=== PATIENT | male | born 1970 | race Caucasian/White ===

== ENCOUNTER 2020-10-13 09:35 | Inpatient (IN) | payer OTHER ==
[~2020-10-13] VITALS: Ht 165.1 cm; Wt 72.6 kg
[2020-10-13 09:39] VITALS: BP 107/63
[2020-10-13 11:40] LABS: HEMATOCRIT 45.7 % (42.0-52.0); HEMOGLOBIN 14.7 gm/dL (14.0-18.0); MCH 30.3 pg (26.0-34.0); MCHC 32.1 g/dL (28.0-37.0); MCV 94.4 fL (80.0-100.0); RBC 4.84 mil/uL (4.50-6.00); RDW 16.8 % (10.5-14.5)
[2020-10-13 11:51] LABS: CALCIUM 8.1 mg/dL (8.5-10.1); CREATININE 1.2 mg/dL (0.7-1.3); POTASSIUM 4.2 mmol/L (3.5-5.1)
[2020-10-13 11:56] LABS: ALBUMIN 3.6 g/dL (3.4-5.0); TOTAL BILIRUBIN 3.2 mg/dL (0.2-1.0); TOTAL PROTEIN 7.1 g/dL (6.4-8.2)
[2020-10-13 12:06] LABS: ABSOLUTE NEUTROPHILS 3.3 thou/uL (1.4-8.2); PLATELET COUNT 83 thou/uL (150-400); PLATELET ESTIMATE DECREASED
[2020-10-13 12:08] LABS: INR 1.5; PROTIME 15.1 Seconds (9.3-11.4)
--- NOTE | 2020-10-13 12:19 | EKG ---
[facility] [place] [address] ELECTROCARDIOGRAM REPORT Name: KITTYREX Room #: PRE M.R.#: [id number] Admission: Attend Phys: Discharge: Date of : 70 Report #: [id number] THIS REPORT FOR: cc: Arnaldo Lynch MD [facility] ~ THIS REPORT FOR: //name// 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[facility] [place] 1970 Requested By: Gerardo Kauffman Order Number: [id number] MD: Arnaldo Lynch Measurements Intervals [place] Rate: 113 P: ND: QRS: 33 QRSD: 108 T: 233 QT: 350 QTc: 480 Interpretive Statements Atrial fibrillation Ventricular premature complex LVH with secondary repolarization abnormality Borderline prolonged QT interval No previous ECG available for comparison Electronically Signed On 10-13-2020 12:19:12 INVESTIGATION OFFICER by Arnaldo Lynch [email or web address] <ELECTRONICALLY SIGNED> By: Arnaldo Lynch MD, FAC 10/13/20 1219 0948 0948 Arnaldo Lynch MD, FACC /EPI
--- NOTE | 2020-10-13 12:23 | NUR ---
RETURNED FROM CT SCAN
[2020-10-13] MEDS ORDERED: FUROSEMIDE 40 M40 MG PO (13:58)
[2020-10-13] MEDS ORDERED: SPIRONOLACTONE25 MG PO (13:58)
[2020-10-13] MEDS ORDERED: ZESTRIL2.5 MG PO (13:59)
[2020-10-13] MEDS ORDERED: TOPROL XL100 MG PO (14:00)
[2020-10-13] MEDS ORDERED: XARELTO20 MG PO (14:00)
[2020-10-13] MEDS ORDERED: LIPITOR10 MG PO (14:00)
[2020-10-13] MEDS ORDERED: MULTI VITAMIN1 EACH PO (14:01)
[2020-10-13 16:11] LABS: % SATURATION 8 % (20-39); IRON 34 ug/dL (65-175); TIBC 418 ug/dL (250-450)
[2020-10-13 18:15] VITALS: BP 108/71
[2020-10-13 18:40] VITALS: BP 108/71
[2020-10-13 20:00] VITALS: BP 107/60
[2020-10-14] VITALS (71 sets, daily range): BP systolic 52–149; BP diastolic 27–129
[2020-10-14 01:06] LABS: IgG 1086 mg/dL (603-1613)
--- NOTE | 2020-10-14 01:17 | NUR ---
ADMITTED AT SHIFT CHANGE FROM ER AROUND 1929. PLACED ON TELEMETRY DUE TO SIGNIFICANT CARDIAC HISTORY. AFIB WITH RATE IN 120'S. C/O SPORADIC ABDOMINAL PAIN, NO NAUSEA. AROUND 2299, FREQUENT PERIODS OF AFIB WITH RVR, RATE REACHING HIGH 150'S. A. DENG MORALEZ CONTACTED, ORDERS TAKEN, AND IMPLEMENTED. CARDIOLOGY CONSULTED, AWAITING RETURN PHONE CALL. AMIODORONE GTT ORDERED, PATIENT TRANSFERRED TO CCU, ROOM 204. MESSAGE LEFT FOR DAUGHTER TO INFORM OF TRANSFER. ORDER TO PLACE ON ETOH WITHDRAWL PROTOCOL DUE TO DAILY INTAKE OF 6-8 ALCOHOLIC BEVERAGES. PAIN PARTIALLY RELIEVED WITH ADMINISTRATION OF IV FENTANYL. REPORT CALLED TO 2N, PATIENT TOLERATED TRANSFER WELL.
[2020-10-14 06:05] LABS: HEMATOCRIT 46.1 % (42.0-52.0); HEMOGLOBIN 14.8 gm/dL (14.0-18.0); MCH 30.2 pg (26.0-34.0); MCHC 32.1 g/dL (28.0-37.0); MCV 94.2 fL (80.0-100.0); RBC 4.89 mil/uL (4.50-6.00); RDW 16.2 % (10.5-14.5); WBC 5.5 thou/uL (4.0-11.0)
[2020-10-14 06:06] LABS: HAV IgM AB (ANTI-HAV IgM) Negative (Negative); HEPATITIS B SURFACE AG Negative (Negative); HEPATITIS C VIRUS AB <0.1 (0.0-0.9)
[2020-10-14 06:39] LABS: CALCIUM 8.3 mg/dL (8.5-10.1); CREATININE 1.3 mg/dL (0.7-1.3); POTASSIUM 4.6 mmol/L (3.5-5.1)
--- NOTE | 2020-10-14 08:10 | NUR ---
PATIENT ARRIVED FROM THE FOURTH FLOOR AFTER THE PATIENT WAS FOUND TO BE IN AFIB W/ RVR. AMIODARONE ORDERED. PATIENT MOVED TO FOR IV THERAPY. ALSO STARTED A BANANA BAG. PATIENT C/O PAIN IN ABDOMEN 10/10 FENTANYL GIVEN CHARTED. ON ROOM AIR, COUGH PRESENT. UP WITH STANDBY ASSIST. PATIENT HAS BEEN NPO SINCE MIDNIGHT FOR POSSIBLE THORACENTESIS TODAY IF THERE IS ENOUGH FLUID TO TAP. PATIENT'S COVID TEST CAME BACK POSITIVE THIS MORNING. 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 PLAN SET INTO WORK TO MOVE PATIENT TO 3W SOON ROOMS CAN BE CLEANED.
--- NOTE | 2020-10-14 08:24 | EKG ---
[facility] [place] [address] ELECTROCARDIOGRAM REPORT Name: REX TANG Room #: 204-P ADM IN M.R.#: [id number] Admission: 10/13/20 Attend Phys: Christian Gustafson MD Discharge: Date of : 70 Report #: [id number] THIS REPORT FOR: cc: MAGO Cedillo family physician/PCP MAGO - Nguyen family physician/PCP Arnaldo Lynch MD [facility] THIS REPORT FOR: //name// [facility] Test Date: 2020-10-13 Test Time: 23:43:10 Pat Name: REX TANG Department: Room: 204 Gender: M Sales Driver: Colby Marino : 1970 Requested By: Anika Zhou Order Number: [id number] MD: Arnaldo Lynch Measurements Intervals [place] Rate: 129 P: AK: QRS: -17 QRSD: 102 T: 160 QT: 314 QTc: 460 Interpretive Statements Atrial fibrillation LVH with secondary repolarization abnormality Compared to ECG 10/13/2020 09:48:56 Ventricular premature complex(es) no longer present Electronically Signed On 10-14-2020 8:24:21 HELP AID by Arnaldo Lynch [email or web address] <ELECTRONICALLY SIGNED> By: Arnaldo Lynch MD, FACC 10/14/20 0824 2343 2343 Arnaldo Lynch MD, [facility] /EPI
[2020-10-14 09:55] LABS: BE(vivo) -16.9 mmol/L (-2 to +3); HCO3 8.8 mmol/L (22.0-26.0); PCO2 22.6 mmHg (35.0-45.0); PO2 83.7 mmHg (80.0-100.0); pH 7.209 (7.360-7.450); sO2 94.4 % (92.0-98.0)
[2020-10-14 10:22] LABS: ALBUMIN 3.7 g/dL (3.4-5.0); DIRECT BILIRUBIN 1.7 mg/dL (<0.1-0.2); TOTAL BILIRUBIN 3.3 mg/dL (0.2-1.0); TOTAL PROTEIN 7.4 g/dL (6.4-8.2)
--- NOTE | 2020-10-14 11:31 | NUR ---
Spoke with dtr by phone. She reports patient resides with her and sister in home. 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 He drives, independent with bathing, dressing. Dtr reports he is not a [place] citizen. She reports he has been at [facility] in past and they were assisting with financial assistance. patient has no health insurnace. Dtr reports he does not work since past year. She reports patient has cont to complain of abd pain for a period of time. She is aware he is COVID positive. Requested rn call dtr for report. Casemgt following.
--- NOTE | 2020-10-14 12:23 | NUR ---
THIS CUSTOMER SUCCESS MANAGER RESPONDED TO CODE BLUE ON 2N FOR PATIENT.
[2020-10-14 12:53] LABS: CALCIUM 9.8 mg/dL (8.5-10.1); CREATININE 2.1 mg/dL (0.7-1.3)
[2020-10-14 13:38] LABS: POTASSIUM 5.8 mmol/L (3.5-5.1)
[2020-10-14 14:07] LABS: ANA INTERPRETATION Negative (Negative); CERULOPLASMIN 34.9 mg/dL (16.0-31.0)
[2020-10-14 14:42] LABS: ABSOLUTE RETIC COUNT 0.1554 10^6/uL; OBSERVED RETIC COUNT 3.25 % (0.6-2.6)
[2020-10-14 15:28] LABS: APTT 50.8 Seconds (24.5-32.8); PROTIME 23.8 Seconds (9.3-11.4)
[2020-10-14 15:39] LABS: D-DIMER 35.2 ug/mLFEU (0.19-0.50); INR 2.3
[2020-10-14 15:51] LABS: TRIGLYCERIDE 78 mg/dL (<150)
[2020-10-14 15:52] LABS: BE(vivo) -20.2 mmol/L (-2 to +3); HCO3 7.5 mmol/L (22.0-26.0); pH 7.114 (7.360-7.450); sO2 98.3 % (92.0-98.0)
--- NOTE | 2020-10-14 16:01 | NUR ---
VASCULAR ACCESS CONSULTED FOR POST CODE CVAD PER DR SPRINGER. RIJ WAS WIDELY PATENT WITH USG. 6FR 25CM JACC TL INSERTED TO 5CM EXTERNAL. PT HAVING LARGE AMT BLEEDING FROM INSERTION SITE. PRESSURE DRG AND MANUAL PRESSURE HELD FOR OVER [address] SPRINGER NOTIFIED THAT CONTINUES TO BLEED,UNABLE TO REMOVE DUE TO ONLY ACCESS FOR PRESSORS AND MANUAL PRESSURE STILL HELD. IR NOTIFIED. ABLE TO FINALLY PLACE PRESSURE DRESSING WITH 4X4'S AND WIDE TAPE. CXR CONFIRMED CVAD PLACEMENT. DR GAMA CAME AND RELPACED LINE WITH 7FR TL CENTRAL LINE. GAUZE APPLIED TO SITE.
--- NOTE | 2020-10-14 16:17 | NUR ---
RECEIVED PT'S CARE AROUND 0740; PT. IN THE RESTHROOM WITH NIGHT RN; PT. ALERT; C/O SOB; ALERT TO PERSON; 02 SAT 96%; PRN LORAZEPAM GIVEN PER PROTOCOL; PHYSICIAN NOTIFIED; ORDERS ON PLACED; PAGED RT X4; CRITICAL RESULTS REPORTED BACK TO PHYSICIAN; ORDERS ON PLACED; TRANSFER TO ICE; ONLINE MARKETING SPECIALIST NOTIFIED; PT. RESTLESS; AFIB ON THE MONITOR; IV PULLED OUT; IV STARTED; DURING DR. SPRINGER ROUNDING ON THE FLOOR NOTIFIED ABOUT PT'S STATUS; TRANSFER TO ICU; DURING ASSESSMENT PT'S HR ON THE 40-30s; PT NO RESPONSIVE; CODE BLUE CALL; DR. SPRINGER IN THE ROOM HELPING WITH CPR WHILE SHIP PROPELLER FINISHER PUTTING ON PPE; DAUGHTER UPDATED ABOUT PT'S STATUS AFTER PT. TRANSFER TO ER; QUESTIONS ANSWERED & EXPLAINED;
[2020-10-14 17:02] LABS: CALCIUM 8.2 mg/dL (8.5-10.1); CREATININE 2.4 mg/dL (0.7-1.3); POTASSIUM 4.4 mmol/L (3.5-5.1)
--- NOTE | 2020-10-14 18:41 | 2DMMODE ---
[facility] [address] [place] [address] 2 D/M-MODE ECHOCARDIOGRAM Name: REX TANG Room #: 243-P ADM IN M.R.#: [id number] Admission: 10/13/20 Attend Phys: Christian Gustafson MD Discharge: Date of : 70 Report #: [id number] THIS REPORT FOR: cc: FAM - No family physician/PCP FAM - No family physician/PCP Lei Wallace MD ~ APPROVED REPORT Study performed: 10/14/2020 17:51:55 EXAM: Limited 2D, Doppler, and color-flow Echocardiogram Patient Location: ICU Room #: 243 Status: on-call BSA: 1.80 HR: 43 bpm Rhythm: Bradycardia Other Information Study Quality: Adequate Indications post code, eval for pericardial effusion 2D Dimensions RVDd: 52.14 mm IVSd: 14.48 (7-11mm) LVOT Diam: 24.26 (18-24mm) LVDd: 68.85 mm PWd: 12.90 (7-11mm) Ascending Ao: 43.23 (22-36mm) LVDs: 61.01 (25-40mm) IVC: 24.00 mm Aortic Valve AoV Peak Alfonso.: 3.03 m/s AO Peak Gr.: 36.65 mmHg LVOT Max P.00 mmHg AO Mean Gr.: 17.41 mmHg LVOT Mean P.41 mmHg AO V2 Mean: 1.94 m/s LVOT Max V: 0.50 m/s AO V2 VTI: 86.78 cm LVOT Mean V: 0.29 m/s RAHAT (VTI): 0.60 cm2 LVOT V1 VTI: 11.20 cm RAHAT Vmax: 0.76 cm2 SV (LVOT): 51.72 mL Tricuspid Valve TR Peak Alfonso.: 1.46 m/s RAP Estimate: 15.00 mmHg [facility] [address] [place] [address] 2 D/M-MODE ECHOCARDIOGRAM Name: REX TANG Room #: 243-P ADM IN M.R.#: [id number] Admission: 10/13/20 Attend Phys: Christian Gustafson MD Discharge: Date of : 70 Report #: [id number] Peak Gr.: 8.49 mmHg Left Ventricle Left ventricle is severely dilated. There is global hypokinesis of the left ventricle. Mild to moderate concentric left ventricular hypertrophy. Left ventricular ejection fraction is severely decreased. LVEF is 20-25%. Right Ventricle Right ventricle is severely dilated. Right ventricle is moderately hypokinetic. Aortic Valve Aortic valve appears to be bicuspid with moderate calcification present. Mild aortic regurgitation. There is severe valvular aortic stenosis. Calculated aortic valve area is 0.8 cm2 with maximum pressure gradient of 37 mmHg and mean pressure gradient of 17.5 mmHg. Mitral Valve The mitral valve is normal in structure. Moderate mitral regurgitation. Tricuspid Valve The tricuspid valve is normal in structure. Severe tricuspid regurgitation. Pulmonic Valve The pulmonary valve is normal in structure. Great Vessels The aortic root is normal in size. IVC is dilated and collapses <50% with inspiration. Pericardium There is no pericardial effusion. <Conclusion> Left ventricle is severely dilated. Left ventricular ejection fraction is severely decreased. LVEF is 20-25%. There is global hypokinesis of the left ventricle. Right ventricle is severely dilated. Right ventricle is moderately hypokinetic. Aortic valve appears to be bicuspid with moderate calcification present. [facility] [address] [place] [address] 2 D/M-MODE ECHOCARDIOGRAM Name: REX TANG Room #: 243-P ADM IN M.R.#: [id number] Admission: 10/13/20 Attend Phys: Christian Gustafson MD Discharge: Date of : 70 Report #: [id number] Mild aortic regurgitation. There is severe valvular aortic stenosis. Calculated aortic valve area is 0.8 cm2 with maximum pressure gradient of 37 mmHg and mean pressure gradient of 17.5 mmHg. The mitral valve is normal in structure. Moderate mitral regurgitation. The tricuspid valve is normal in structure. Severe tricuspid regurgitation. The pulmonary valve is normal in structure. There is no pericardial effusion. <ELECTRONICALLY SIGNED> By: Lei Wallace MD 10/14/201839 39 39 Lei Wallace MD /INF
--- NOTE | 2020-10-14 20:57 | NUR ---
PATIENT INITALLY TRANSFERRED TO ROOM 12 IN ED POST CARDIAC ARREST. LANDED IN ED ROOM WITH RESPIRATORY AND IV NURSE. PLACED ON VENT. HOOKED UP TO ED MONITOR. SINUS RHYTHM. BLOOD PRESSURES HYYPOTENSIVE. LEVOPHED GTT INITIATED. CENTRAL LINE PLACED BY IV NURSE. XRAY TO CONFIRM PLACEMENT. SIGNIFICANT AMOUNT OF BLEEDING AT SITE. DR. SPRINGER UPDATED. PRESSURE HELD BY IV NURSE WHILE PATIENT REMAINED IN ED ROOM AND THROUGH OUT TRANSPORT TO ICU BED. UPDATED DR. SPRINGER ABOUT CONTINUED BLEEDING. ORDERS FOR IR TO EXCHANGE CATHETER FOR LARGER SIZE. EXHANGE DONE, PLACEMENT CONFIRMED. BLEEDING CEASED. PATIENT CONTINUED TO BE HYPOTENISVE MAXED ON LEVOPHED AND EPI GTT. ORDERS FOR VASOPRESSIN. CONSULT FOR RENAL COMPLETE. CRITICAL LAB FOR BLOOD GLUCOSE CALLED. PATIENT GIVEN 1 AMP DEXTROSE. RECHECK SUGAR 67, GIVEN AN ADDITIONAL AMP DEXTROSE WITH CORRECTED SUGAR. TOTAL OF 4 AMPS BICARB GIVEN PER DR. SPRINGER'S ORDERS. BRADYCARDIC ON THE MONTIIOR AND CONTINUED TO BE HYPOTENSIVE WITH MAXED BP SUPPORT. ORDERS FOR A PHENYLEHPRINE GTT. UPDATED CARDIOLOGY ON PATIENT PRESENTATION. ABBREVIATED ECHO DONE. NO URINE OUTPUT SINCE CARDIAC ARREST, PULM AND RENAL DOCTOR AWARE. UPDATED FAMILY ON PATIENT STATUS. AT THIS TIME WOULD LIKE TO CONTINUE FULL SUPPORT AND REMAIN FULL CODE. SPOKE WITH DR. SPRINGER ABOUT ART LINE PLACEMENT, WILL ATTEMPTED TO FIND PROVIDER TO PLACE AN A-LINE. PATIENT STARTED ON HYPOTHERMIA PROTOCOL AT 1405. HIT [employer] TEMP OF 33.0 AT 1730. PATIENT UNAROUSABLE. NO COUGH OR GAG REFLEX. DOES NOT RESPOND TO STIMULI, NO SEDATION OR NARCOTIC INTIAITED AT THIS TIME.
[2020-10-14 23:15] LABS: BE(vivo) -22.8 mmol/L (-2 to +3); HCO3 11.7 mmol/L (22.0-26.0); sO2 17.2 % (92.0-98.0)
[2020-10-14 23:16] LABS: PCO2 66.9 mmHg (35.0-45.0); PO2 23.5 mmHg (80.0-100.0); pH 6.861 (7.360-7.450)
[2020-10-15 00:39] LABS: MCH 30.1 pg (26.0-34.0)
[2020-10-15 00:40] LABS: HEMATOCRIT 50.8 % (42.0-52.0); HEMOGLOBIN 14.5 gm/dL (14.0-18.0); MCHC 28.5 g/dL (28.0-37.0); RBC 4.81 mil/uL (4.50-6.00); RDW 18.8 % (10.5-14.5); WBC 17.4 thou/uL (4.0-11.0)
[2020-10-15 00:51] LABS: PLATELET COUNT 14 thou/uL (150-400)
[2020-10-15 00:52] LABS: MCV 105.7 fL (80.0-100.0)
[2020-10-15 00:55] LABS: CALCIUM 7.7 mg/dL (8.5-10.1); CREATININE 2.5 mg/dL (0.7-1.3); MAGNESIUM 2.3 mg/dL (1.8-2.4); PHOSPHORUS 10.1 mg/dL (2.5-4.9); POTASSIUM 4.4 mmol/L (3.5-5.1)
[2020-10-15 00:59] LABS: TROPONIN-I 2.47 ng/mL (<0.06)
[2020-10-15 01:03] LABS: PROTIME 50.1 Seconds (9.3-11.4)
[2020-10-15 01:17] LABS: APTT 98.4 Seconds (24.5-32.8)
[2020-10-15 02:11] LABS: ABSOLUTE NEUTROPHILS 15.5 thou/uL (1.4-8.2); ANISOCYTOSIS 2+; LARGE PLATELETS FEW; MACROCYTES 1+; METAMYELOCYTES 1 %; NUCLEATED RBCS 1 /100WBC; PLATELET ESTIMATE MARKEDLY DECREASED; PROMYELOCYTES 1 %
[2020-10-15 02:47] VITALS: BP 88/46
--- NOTE | 2020-10-15 03:22 | NUR ---
ASSUMED CARE OF PT AT 1900. PT UNAROUSABLE THROUGH OUT SHIFT. PT's PUPILS ARE REACTIVE, BUT HAS NO CORNEAL, GAG, OR COUGH REFLEX. FAMILY ALLOWED TO SEE PT GIVEN HIS CRITICAL CONDITION. FAMILY'S QUESTIONS WERE ANSWERED AND THEY WERE INFORMED OF PT'S CRITICAL CONDITION. PT TITRATED UP ON PRESSORS PER DR SPRINGER'S ORDERS. DOPAMINE INITIATED AT 0300. Anuel VILCHIS NP CONTACTED FAMILY AT 0315 TO DISCUSS PLAN OF CARE. FAMILY AGREE TO MAKE HIM A DNR. AWAITING FAMILY'S ARRIVAL TO WITHDRAW CARE.
== END 2020-10-15 07:45 | DRG 208 ==
LOC: ER 09:35 → EROBS 13:43 → 4W 19:31 → 2N 10-14 01:02 → EROBS 10-14 12:44 → ICU 10-14 13:38
PROVIDERS: Emergency Medicine; Internal Medicine Pulmonary Disease; Nurse Practitioner; ADMIT Internal Medicine; ATTEND Internal Medicine
PROC: XW033E5 Introduction of Remdesivir Anti-infective into Peripheral Vein, Percutaneous Approach, New Technology Group 5 (ICD-10-PCS; principal; 2020-10-14)
PROC: 0BH17EZ Insertion of Endotracheal Airway into Trachea, Via Natural or Artificial Opening (ICD-10-PCS; principal; 2020-10-14)
PROC: 5A1935Z Respiratory Ventilation, Less than 24 Consecutive Hours (ICD-10-PCS; principal; 2020-10-14)
PROC: 02PYX3Z Removal of Infusion Device from Great Vessel, External Approach (ICD-10-PCS; principal; 2020-10-14)
PROC: 02HV33Z Insertion of Infusion Device into Superior Vena Cava, Percutaneous Approach (ICD-10-PCS; principal; 2020-10-14)
DX: U07.1 COVID-19 (principal); J96.01 Acute respiratory failure with hypoxia; N17.0 Acute kidney failure with tubular necrosis; R18.8 Other ascites; I48.21 Permanent atrial fibrillation; I42.9 Cardiomyopathy, unspecified; F10.10 Alcohol abuse, uncomplicated; G89.29 Other chronic pain; R10.9 Unspecified abdominal pain; I35.1 Nonrheumatic aortic (valve) insufficiency; K70.9 Alcoholic liver disease, unspecified; K74.60 Unspecified cirrhosis of liver; E16.2 Hypoglycemia, unspecified; Z79.01 Long term (current) use of anticoagulants; Z79.899 Other long term (current) drug therapy; Z66 Do not resuscitate; Z51.5 Encounter for palliative care
CPT/HCPCS: 10040; 10203